=== PATIENT | male | born 1960 | race American Indian/Alaskan Native ===

== ENCOUNTER 2018-04-14 12:23 | Emergency (ER) | payer SELFPAY ==
[2018-04-14 12:25] VITALS: BMI 31.4
[2018-04-14 12:27] VITALS: RESP 18; TEMP 97.4
--- NOTE | 2018-04-14 12:48 | ED PDOC ---
Arrival/HPI - General Chief Complaint: High Blood Pressure Time Seen by Provider: 04/14/18 12:25 Historian: Patient - History of Present Illness Narrative History of Present Illness (Text): 04/14/18 12:42 57 year old male, with a past medical history of hypertension presents to the Emergency department brought in by [facility] for evaluation of elevated blood pressure prior to arrival. Patient was reportedly at the [facility] when he was found hypertensive and was subsequently brought to the ED. Patient reports that he is non compliant with his medications. Patient is currently asymptomatic and denies any somatic complaints. He denies any nausea, vomiting, shortness of breath, dizziness, headaches, chills, diaphoresis, chest pain or any other complaints. Patient endorses smoking (1ppd) and occasional alcohol, but denies any illicit drug use. Time/Duration: Prior to Arrival Symptom Onset: Gradual Symptom Course: Unchanged Activities at Onset: Light Context: Other (brought in by [facility]) Associated Symptoms (Text): 04/14/18 13:41 Known hypertension, but has not taken his medications due to incarceration. He is asymptomatic. No headache dizziness or lightheadedness. No chest pain palpitations or dyspnea. Past Medical History - Provider Review Nursing Documentation Reviewed: Yes - Infectious Disease Hx of Infectious Diseases: None - Cardiac Hx Hypertension: Yes - Psychiatric Hx Substance Use: No - Anesthesia Hx Anesthesia: No Family/Social History - Physician Review Nursing Documentation Reviewed: Yes Family/Social History: Unknown Family HX Smoking Status: Heavy Smoker > 10 Cigarettes Daily Hx Alcohol Use: Yes Frequency of alcohol use: Socially Hx Substance Use: No Allergies/Home Meds Allergies/Adverse Reactions: Allergies No Known Allergies Allergy (Unverified 04/14/18 12:35) Home Medications: Home Meds Medication Instructions Recorded Confirmed Home Med 1 tab PO DAILY 04/14/18 04/14/18 Losartan [Cozaar] 1 tab PO DAILY 04/14/18 04/14/18 Review of Systems - Physician Review All systems were reviewed & negative as marked: Yes - Review of Systems Constitutional: absent: Fevers Respiratory: absent: SOB Cardiovascular: absent: Chest Pain Gastrointestinal: absent: Nausea, Vomiting Musculoskeletal: absent: Back Pain, Neck Pain Neurological: absent: Headache, Dizziness Endocrine: absent: Diaphoresis Physical Exam Vital Signs Reviewed: Yes Vital Signs Temp Pulse Resp BP Pulse Ox 04/14/18 12:27 173/111 H 04/14/18 12:25 97.4 F L 70 18 169/115 H 99 Temperature: Afebrile Blood Pressure: Hypertensive Pulse: Regular Respiratory Rate: Normal Appearance: Positive for: Well-Appearing, Non-Toxic, Comfortable Pain Distress: None Mental Status: Positive for: Alert and Oriented X 3 - Systems Exam Head: Present: Atraumatic, Normocephalic Pupils: Present: PERRL Extroacular Muscles: Present: EOMI Conjunctiva: Present: Normal Mouth: Present: Moist Mucous Membranes Neck: Present: Normal Range of Motion Respiratory/Chest: Present: Clear to Auscultation, Good Air Exchange. No: Respiratory Distress, Accessory Muscle Use Cardiovascular: Present: Regular Rate and Rhythm, Normal S1, S2. No: Murmurs Abdomen: No: Tenderness, Distention, Peritoneal Signs Back: Present: Normal Inspection Upper Extremity: Present: Normal Inspection. No: Cyanosis, Edema Lower Extremity: Present: Normal Inspection. No: Edema Neurological: Present: GCS=15, CN II-XII Intact, Speech Normal, Motor Func Grossly Intact Skin: Present: Warm, Dry, Normal Color. No: Rashes Psychiatric: Present: Alert, Oriented x 3, Normal Insight, Normal Concentration Medical Decision Making ED Course and Treatment: 04/14/18 12:52 Impression: 57 year old male presents to the Emergency department brought in by [facility] for evaluation of hypertensive state. Plan: -- Catapres -- Reassess and disposition Prior Visits: Notes and results from previous visits were reviewed. Progress Notes: 04/14/18 13:42 Blood pressure is markedly improved post 1 dose of clonidine. Patient will be discharged in police custody. Follow-up with PMD. Follow-up in ER as needed. - Medication Orders Current Medication Orders: Discontinued Medications Clonidine HCl (Catapres) 0.2 mg PO ONCE ONE Stop: 04/14/18 12:36 - Scribe Statement The provider has reviewed the documentation as recorded by the Scribe rich Garcia All medical record entries made by the Scribe were at my direction and personally dictated by me. I have reviewed the chart and agree that the record accurately reflects my personal performance of the history, physical exam, medical decision making, and the department course for this patient. I have also personally directed, reviewed, and agree with the discharge instructions and disposition. Disposition/Present on Arrival - Present on Arrival Any Indicators Present on Arrival: No History of DVT/PE: No History of Uncontrolled Diabetes: No Urinary Catheter: No History of Decub. Ulcer: No History Surgical Site Infection Following: None - Disposition Have Diagnosis and Disposition been Completed?: Yes Diagnosis: Hypertension Disposition: RELEASED IN POLICE CUSTODY Disposition Time: 13:43 Patient Plan: Discharge Condition: IMPROVED Discharge Instructions (ExitCare): High Blood Pressure in Adults Forms: [facility] ([place]an)
[2018-04-14 13:24] VITALS: PULSE 73; O2SAT 97
[2018-04-14 14:48] VITALS: BP 115/81
== END 2018-04-14 15:00 ==
LOC: ED 12:23
DX: I10 Essential (primary) hypertension (principal); F17.210 Nicotine dependence, cigarettes, uncomplicated; Z91.19 Patient's noncompliance with other medical treatment and regimen; Z65.3 Problems related to other legal circumstances